=== PATIENT | female | born 1950 | race Caucasian/White ===

== ENCOUNTER 2017-01-30 06:04 | Observation (INO) | payer OTHER ==
[2017-01-30] MEDS ORDERED: LR 1,000 ML ONE ×2 (06:24→11:25)
[2017-01-30] MEDS ORDERED: KEFZOL 2 GM/D5W 50 ML ONE (06:24)
[2017-01-30] MEDS ORDERED: DEMEROL ONE (06:46)
[2017-01-30] MEDS ORDERED: NAROPIN 0.5% ONE (06:49)
[2017-01-30] MEDS ORDERED: VERSED ONE (07:14)
[2017-01-30] MEDS ORDERED: ZOFRAN ONE (11:23)
[2017-01-30] MEDS ORDERED: NEO-SYNEPHRINE ONE (11:23)
[2017-01-30] MEDS ORDERED: EPHEDRINE ONE (11:23)
[2017-01-30] MEDS ORDERED: ROBINUL ONE (11:24)
[2017-01-30] MEDS ORDERED: XYLOCAINE-MPF 2% ONE (11:24)
[2017-01-30] MEDS ORDERED: DECADRON ONE (11:25)
[2017-01-30] MEDS ORDERED: NS 1,000 ML ONE (11:32)
[2017-01-30] MEDS ORDERED: ZOFRAN IV PRN (12:25)
[2017-01-30] MEDS ORDERED: PHENERGAN IV PRN (12:29)
[2017-01-30] MEDS: MORPHINE IV PRN ×4 (12:34→23:34)
[2017-01-30] MEDS: NS 1,000 ML IV SCH ×2 (12:34→23:59)
--- NOTE | 2017-01-30 12:54 | OPERATIVE NOTE ---
PROCEDURE DATE: 01/30/2017 PREOPERATIVE DIAGNOSES: 1. Left equinus contracture. 2. 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 POSTOPERATIVE DIAGNOSES: 1. Left equinus contracture. 2. 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 PROCEDURE: 1. Left gastrocsoleus recession. 2. Left bone graft major from the proximal tibia. 3. Left subtalar fusion. 4. Left open reduction internal fixation calcaneus nonunion. SURGEON: Rogelio Espinoza MD PIN DRAFTING MACHINE OPERATOR: Mason Wild RN ANESTHESIA: General with LMA and preoperative popliteal block. TOURNIQUET TIME: 130 minutes. ESTIMATED BLOOD LOSS: About 20 mL. IMPLANTS: 1. [employer] augment. 2. Cancellous allograft chips. 3. [employer] 7.0 headless compression screws x2. DISPOSITION: To PACU, hemodynamically stable. INDICATION FOR PROCEDURE: Ms. Alba is a 66-year-old female, who I got to know quite well over the past several months. She had a grade 3A open calcaneal fracture back the summer of last year. It ended getting infected, skin loss on the medial side. We did nonoperative treatment. We did wound care treatment for her over several months and that skin finally healed. We did IV antibiotics for a while and then she was on p.o. antibiotics as well [facility] because of this open infection. She had several washout as well. When we started weightbearing, she started having a lot of pain and so we discussed at that time about getting a CT scan, which did show a nonunion and then we discussed surgical intervention, which would be a nonunion repair and a subtalar arthrodesis. I went over with her the procedure, risks, benefits, potential complications. Risks include, but are not limited to, infection, wound healing problems, damage to nerves, arteries, veins, numbness, malunion, nonunion, hardware related issues continued pain DVT and anesthesia related risks. After discussing with the patient, she expressed understanding and wished to proceed. DESCRIPTION OF PROCEDURE: Ms Alba was identified in the preoperative holding area. The left foot was marked as the correct surgical site. She was then wheeled to the operating room, placed supine on the operating table. All bony prominences well padded. She was induced under general anesthesia. LMA was placed. Tourniquet was placed to the left thigh. She was then flipped to the right lateral decubitus position held in place with a beanbag. The left lower extremity then prepped with chlorhexidine gluconate scrub and then ChloraPrep, and draped in normal sterile fashion. Surgical pause was performed. We identified the correct patient, the correct side, and the correct procedure. Preop antibiotics were given, which was IV Ancef. I started with the Esmarch, which exsanguinate the left lower extremity and tourniquet was inflated to 300 mmHg. Total tourniquet time was 130 minutes. We performed a lateral extensile approach to that calcaneus and did full thickness flap, rounded off the bone. We used no-touch technique and then held the flap in place with some K-wires, 2 the fibula, and 1 in the talus. I was able to get down and break up that old nonunion area, which was easily identifiable and the subtalar joint was easily identifiable as well. Then I cleaned out that whole nonunion area with rongeur, curettes, had to use a lamina design assistant to make sure we got that whole surface. After cleaning out that area of the posterior facet bone looked pretty rough. It looked like the blood supply was not that good to that bone. So my options then were either take out that bone and put cadaver bone in, which would be as well or just leave her nisqually bone in, it was probably as well. So I decided just to leave her nisqually bone in. I then cleaned out the subtalar joint with curettes and rongeur and then got it back down to subchondral surface. I then drilled the subtalar joint and then used an osteotome to break open that area so that it was nice raw bleeding bone edges and then used a drill and osteotome as well on the nonunion area through that whole area to really break that up so that we could get a really good fusion mass there. At this point, I then used [employer] augment and packed it in the nonunion site and also in the subtalar site and then packed the cancellous chips in there as well. I went up to her proximal tibia. At this point, I made a small incision on the medial aspect. I used an Acumed reamer and took several passes for bone graft and mixed that with our cancellous allograft chips down at the nonunion site. I then came to more of the posterior medial aspect of the calf. I made a small incision, dissection was carried down to the gastroc aponeurosis. I was then able to transect across that aponeurosis and correct my equinus contracture there and that was my gastrocsoleus recession. I then sewed up that with 2-0 Vicryl and nylon on the skin. I then sewed up the proximal tibia wound with 2-0 Vicryl and nylon on the skin as well. Came back down to our lateral wound, packed all our bone graft in with that augment and also we use some demineralized bone matrix as well putty to fill in all that whole gap so that we had a nice graft feel to both the nonunion site and our subtalar site I then reduced that nonunion site and was able to get a good correction since I did perform my gastrocsoleus resection and I placed 2 guidewires for my 7.0 screws, 1 up into the body of the talus and 1 more into the head area of the talus. I felt my angle of my talus looked good. I wish I could have gotten maybe just a little bit more height, but I did not want to put another bone block in there and so ended using 2 headless compression screws and actually got really good compression across that whole area and compressed our bone graft in. Lateral view showed that we had good compression, good position of our screws. Mooney heel view showed that we were out of varus and our screws were in good position. The AP ankle showed that our screws were in good position in the talus as well, and our overall alignment there looked could also. So after this, sort of shaved down that lateral wall, and put some of that bone that was shaved off at the fusion site as well. Examined my peroneals at this point, they were not dislocated they were behind the fibula, so I ended leaving those alone for the most part. So then I ended up closing my flap, used 0 Vicryl, not many of them, but just to approximate that deep tissue, used a few 2-0 Vicryl to approximate the skin level, did not use many Vicryl sutures either, and then used a nylon suture Steffengower-Donati technique to close the skin. The skin flap looked to be without tension at the end. Then Adaptic 4x4s, ABD, soft roll posterior splint was applied. Tourniquet was let down. The patient had good capillary refill return to the toes. The patient was then awoken from general anesthesia and moved to her own bed and taken to the PACU in stable condition. Postoperatively, patient will be nonweightbearing left lower extremity. She will be admitted for 23 hour observation and will likely go home tomorrow.
[2017-01-30] MEDS: KEFZOL 1 GM/D5W 50 ML IV SCH (16:20)
[2017-01-30] MEDS: OXY IR PO PRN ×2 (16:26→21:28)
[2017-01-30] MEDS ORDERED: DIPRIVAN 1% ONE (16:55)
[2017-01-30] MEDS: CHANTIX PO SCH (22:02)
[2017-01-30] MEDS: CATAFLAM PO SCH (22:02)
[2017-01-30] MEDS: PERIDEX MT SCH (22:03)
[2017-01-30] MEDS: PATIENT'S OWN MED PO SCH ×2 (22:03)
[2017-01-30] MEDS: ZANTAC PO SCH (22:03)
[2017-01-31] MEDS: MORPHINE IV PRN ×8 (02:42→22:23)
[2017-01-31] MEDS: NS 1,000 ML IV SCH ×3 (02:43→18:43)
[2017-01-31] MEDS: KEFZOL 1 GM/D5W 50 ML IV SCH ×2 (02:44→08:37)
[2017-01-31] MEDS: OXY IR PO PRN ×5 (04:00→18:59)
[2017-01-31] MEDS: LOVENOX SUBQ SCH (06:59)
--- NOTE | 2017-01-31 08:33 | PROGRESS NOTE ---
DATE: 01/31/2017 SUBJECTIVE: Ms. Alba postop day 1 after her left calcaneal nonunion repair and subtalar arthrodesis. She has a little bit of a rough night last night from a pain standpoint. Pain is a little bit better this morning. OBJECTIVE: Extremities: Left lower extremity exam: A good capillary refill to all the toes. She is able to move the toes. Good sensation to light touch to the great toe. A little bit of numbness still to the lesser toes. Splint is clean, dry, and intact. ASSESSMENT: Status post left calcaneal nonunion repair and subtalar arthrodesis. PLAN: We will keep Ms. Alba here today secondary to the amount of pain that she is having. We will get physical therapy to begin to work with her as well. She is nonweightbearing, left lower extremity. She will need to be seated in chair today, and then will re-evaluate things in the morning. Everything is looking a lot better, and we can think about discharge.
[2017-01-31] MEDS: PERIDEX MT SCH ×2 (08:37→20:08)
[2017-01-31] MEDS: CATAFLAM PO SCH ×2 (08:42→20:08)
[2017-01-31] MEDS: PRAVACHOL PO SCH (08:43)
[2017-01-31] MEDS: SYNTHROID PO SCH (08:43)
[2017-01-31] MEDS: SINGULAIR PO SCH (08:43)
[2017-01-31] MEDS: CHANTIX PO SCH ×2 (08:43→20:07)
[2017-01-31] MEDS: SEPTRA DS PO SCH (08:43)
[2017-01-31] MEDS: AMITIZA PO SCH (08:43)
[2017-01-31] MEDS: PATIENT'S OWN MED PO SCH ×4 (10:53→20:12)
[2017-01-31] MEDS: PERICOLACE PO PRN (20:07)
[2017-01-31] MEDS: ZANTAC PO SCH (20:07)
[2017-01-31] MEDS ORDERED: PERCOCET-10 PO PRN (22:49)
[2017-02-01] MEDS: MORPHINE IV PRN ×6 (00:32→18:44)
[2017-02-01] MEDS: NS 1,000 ML IV SCH ×2 (03:18→14:29)
[2017-02-01] MEDS: LOVENOX SUBQ SCH (06:57)
[2017-02-01] MEDS: CATAFLAM PO SCH ×2 (09:17→22:13)
[2017-02-01] MEDS: AMITIZA PO SCH (09:17)
[2017-02-01] MEDS: CHANTIX PO SCH ×3 (09:17→22:14)
[2017-02-01] MEDS: PRAVACHOL PO SCH (09:18)
[2017-02-01] MEDS: SEPTRA DS PO SCH (09:18)
[2017-02-01] MEDS: SINGULAIR PO SCH (09:18)
[2017-02-01] MEDS: SYNTHROID PO SCH (09:18)
[2017-02-01] MEDS: PATIENT'S OWN MED PO SCH ×3 (11:14→22:21)
[2017-02-01] MEDS: PERIDEX MT SCH ×3 (11:16→22:20)
--- NOTE | 2017-02-01 12:01 | PROGRESS NOTE ---
DATE: 02/01/2017 SUBJECTIVE: Ms. Alba is postop day 2 from left subtalar fusion and calcaneal nonunion ORIF. She did not have the best day yesterday. She ended getting angry with 1 of our nurses and she feels really bad about it today and so she is very tearful this morning. Pain has been an issue and so she got switched from OxyIR to Percocet. She says that really did not help that much. OBJECTIVE: Left lower extremity exam, still clean, dry, and intact. She has good capillary refill to all the toes. She is still moving all her toes very well. ASSESSMENT: Status post left calcaneal nonunion repair and subtalar arthrodesis. PLAN: I am going to keep Ms. Alba here, especially since her pain is not under control and also from a social standpoint, she really has no one at home to help her and I think she would be a fall risk when she goes home. So we really need to work on getting her pain under control. I am going to change her back to the OxyIR. She can have 2 of those every 4 hours as needed then we are also going to do OxyContin 30 mg continuous release every 12 hours as well. Hopefully that will give her a little bit of baseline relief. I would like to keep her here over the weekend and look for discharge on Friday.
[2017-02-01] MEDS: OXYCONTIN PO SCH ×2 (12:46→22:14)
[2017-02-01] MEDS: OXY IR PO PRN ×2 (12:47→17:19)
[2017-02-01] MEDS: PERICOLACE PO PRN (12:47)
[2017-02-01] MEDS: ZANTAC PO SCH (22:14)
[2017-02-02] MEDS: NS 1,000 ML IV SCH ×2 (01:51→04:57)
[2017-02-02] MEDS: PATIENT'S OWN MED PO SCH ×2 (01:52→08:41)
[2017-02-02] MEDS: OXY IR PO PRN ×2 (03:49→08:37)
[2017-02-02] MEDS: LOVENOX SUBQ SCH (05:04)
[2017-02-02] MEDS: SEPTRA DS PO SCH (08:38)
[2017-02-02] MEDS: CATAFLAM PO SCH (08:38)
[2017-02-02] MEDS: SYNTHROID PO SCH (08:38)
[2017-02-02] MEDS: PRAVACHOL PO SCH (08:39)
[2017-02-02] MEDS: AMITIZA PO SCH (08:39)
[2017-02-02] MEDS: CHANTIX PO SCH (08:39)
[2017-02-02] MEDS: SINGULAIR PO SCH (08:39)
[2017-02-02] MEDS: PERIDEX MT SCH (08:40)
[2017-02-02] MEDS: PERICOLACE PO PRN (08:42)
[2017-02-02] MEDS: MORPHINE IV PRN (08:42)
[2017-02-02 08:56] VITALS: BP 122/70
--- NOTE | 2017-02-02 09:59 | PROGRESS NOTE ---
DATE: 02/02/2017 Ms. Alba is currently afebrile with stable vital signs. The incision is clean and dry. Her pain is managed under current pain management. At the present time, we discharged her home for outpatient followup. She is to follow up with Dr. Espinoza. We will see her back for any emergent needs at the hospital if needed.
[2017-02-02] MEDS: OXYCONTIN PO SCH (10:20)
== END 2017-02-02 10:52 | disposition home or self-care (01) ==
LOC: PAT 06:04 → 4N 11:12
PROVIDERS: ADMIT Orthopaedic Surgery; ATTEND Orthopaedic Surgery
DX: S92.012K Displaced fracture of body of left calcaneus, subsequent encounter for fracture with nonunion (principal); M19.172 Post-traumatic osteoarthritis, left ankle and foot; M24.572 Contracture, left ankle; M21.6X2 Other acquired deformities of left foot; M79.672 Pain in left foot; K21.9 Gastro-esophageal reflux disease without esophagitis; M19.90 Unspecified osteoarthritis, unspecified site; F32.9 Major depressive disorder, single episode, unspecified; Z89.021 Acquired absence of right finger(s); E89.0 Postprocedural hypothyroidism; Z79.899 Other long term (current) drug therapy; F17.201 Nicotine dependence, unspecified, in remission
CPT/HCPCS: 76000; 94761; 94799; C1713; C1762; J0690; J1100; J1650; J2175; J2250; J2270; J2370; J2405; J2795; J7030; J7120; 97116-GP; 97530-GP